=== PATIENT | female | born 1970 | race Caucasian/White ===

== ENCOUNTER 2017-03-08 21:39 | Inpatient (IN) | payer BC ==
[~2017-03-08] VITALS: Ht 170.2 cm; Wt 66.0 kg
[~2017-03-08 21:39] MED LIST: ZOLOFT100 MG PO
[2017-03-09 11:05] VITALS: BP 145/73
[2017-03-09 11:28] VITALS: BP 145/73
[2017-03-09 15:50] VITALS: BP 130/67
[2017-03-09 17:39] LABS: HEMATOCRIT 38.7 % (36.0-46.0); MCH 28.7 PG (29.0-34.0); MCHC 33.9 G/DL (30.0-36.0); MCV 84.7 FL (83-99); MEAN PLAT.VOLUME 9.6 uM^3 (9.5-12.4); PLATELET COUNT 224 K/uL (156-360); RBC DIS.WIDTH-CV 12.7 % (11.8-14.6); RBC DIS.WIDTH-SD 38.8 % (39-53); RED BLOOD COUNT 4.57 M/uL (3.80-5.20); WHITE BLOOD COUNT 11.7 K/uL (4.1-10.2)
[2017-03-09 18:02] LABS: ANION GAP 10 MEQ/L (2-14); CHLORIDE 104 MEQ/L (99-109); GFR ESTIMATE (CALCULATED) > 59 mL/min/; GLUCOSE 147 mg/dL (70-99); POTASSIUM 3.9 MEQ/L (3.7-5.4); SAMPLE HEMOLYSIS CHECK 0; SAMPLE ICTERIC CHECK 0; SAMPLE LIPEMIA CHECK 0; SODIUM 137 MEQ/L (136-147); UREA NITROGEN (BUN) 8 mg/dL (9-23)
[2017-03-09 19:50] VITALS: BP 124/60
[2017-03-09 23:10] VITALS: BP 118/69
[2017-03-10 04:00] VITALS: BP 104/53
[2017-03-10 06:18] LABS: HEMATOCRIT 34.6 % (36.0-46.0); MCH 29.8 PG (29.0-34.0); MCHC 34.7 G/DL (30.0-36.0); MCV 85.9 FL (83-99); MEAN PLAT.VOLUME 10.1 uM^3 (9.5-12.4); PLATELET COUNT 204 K/uL (156-360); RBC DIS.WIDTH-CV 12.6 % (11.8-14.6); RBC DIS.WIDTH-SD 39.4 % (39-53); RED BLOOD COUNT 4.03 M/uL (3.80-5.20); WHITE BLOOD COUNT 11.6 K/uL (4.1-10.2)
[2017-03-10 07:00] LABS: ANION GAP 7 MEQ/L (2-14); CHLORIDE 101 MEQ/L (99-109); GFR ESTIMATE (CALCULATED) > 59 mL/min/; GLUCOSE 126 mg/dL (70-99); POTASSIUM 3.7 MEQ/L (3.7-5.4); SAMPLE HEMOLYSIS CHECK 0; SAMPLE ICTERIC CHECK 0; SAMPLE LIPEMIA CHECK 0; SODIUM 134 MEQ/L (136-147); UREA NITROGEN (BUN) 5 mg/dL (9-23)
[2017-03-10 07:58] VITALS: BP 115/58
[2017-03-10 11:51] VITALS: BP 99/56
[2017-03-10 17:16] VITALS: BP 96/51
[2017-03-10 19:35] VITALS: BP 110/56
[2017-03-10 23:25] VITALS: BP 128/56
[2017-03-11 03:15] VITALS: BP 119/58
[2017-03-11 06:39] LABS: HEMATOCRIT 34.3 % (36.0-46.0); MCH 29.6 PG (29.0-34.0); MCHC 34.4 G/DL (30.0-36.0); PLATELET COUNT 208 K/uL (156-360); RBC DIS.WIDTH-CV 12.7 % (11.8-14.6); RBC DIS.WIDTH-SD 39.8 % (39-53); RED BLOOD COUNT 3.99 M/uL (3.80-5.20); WHITE BLOOD COUNT 10.1 K/uL (4.1-10.2)
[2017-03-11 07:09] LABS: ANION GAP 11 MEQ/L (2-14); CHLORIDE 105 MEQ/L (99-109); GFR ESTIMATE (CALCULATED) > 59 mL/min/; POTASSIUM 3.6 MEQ/L (3.7-5.4); SAMPLE HEMOLYSIS CHECK 0; SAMPLE ICTERIC CHECK 0; SAMPLE LIPEMIA CHECK 0; UREA NITROGEN (BUN) 6 mg/dL (9-23)
[2017-03-11 07:12] LABS: GLUCOSE 87 mg/dL (70-99); SODIUM 142 MEQ/L (136-147)
[2017-03-11 07:41] VITALS: BP 128/62
[2017-03-11] MEDS ORDERED: TRAMADOL HCL50 MG PO (09:14)
[2017-03-11] MEDS ORDERED: ESTRADIOL1 MG PO (09:14)
[2017-03-11] MEDS ORDERED: LEVAQUIN750 MG PO (09:14)
[2017-03-11 11:05] VITALS: BP 132/72
[2017-03-11 16:10] VITALS: BP 131/61
[2017-03-11 17:33] LABS: ADD MIUA? YES; BILIRUBIN NEGATIVE; BLOOD LARGE; COLOR STRAW ((YELLOW)); GLUCOSE (STRIP) NEGATIVE; KETONES 5; LEUKOCYTES NEGATIVE; NITRITE NEGATIVE; PROTEIN (STRIP) NEGATIVE; SPECIFIC GRAVITY 1.005 (1.000-1.030); UROBILINOGEN 0.2 MG/DL (0.2-1.0)
[2017-03-11 17:43] LABS: BACTERIA RARE /HPF; EPITHELIAL CELLS 1+ /HPF; MUCUS NONE SEEN /LPF; RED BLOOD CELLS 0-5 /HPF (0-5); WHITE BLOOD CELLS 0-5 /HPF (0-5)
[2017-03-11 19:25] VITALS: BP 128/73
[2017-03-11 23:58] VITALS: BP 124/60
[2017-03-12 03:40] VITALS: BP 121/63
[2017-03-12 06:25] LABS: HEMATOCRIT 34.3 % (36.0-46.0); MCHC 34.1 G/DL (30.0-36.0); MCV 85.1 FL (83-99); MEAN PLAT.VOLUME 9.9 uM^3 (9.5-12.4); PLATELET COUNT 207 K/uL (156-360); RBC DIS.WIDTH-CV 12.9 % (11.8-14.6); RBC DIS.WIDTH-SD 39.8 % (39-53); RED BLOOD COUNT 4.03 M/uL (3.80-5.20); WHITE BLOOD COUNT 8.8 K/uL (4.1-10.2)
[2017-03-12 07:03] LABS: ANION GAP 9 MEQ/L (2-14); CHLORIDE 105 MEQ/L (99-109); SAMPLE HEMOLYSIS CHECK 0; SAMPLE ICTERIC CHECK 0; SAMPLE LIPEMIA CHECK 0; SODIUM 141 MEQ/L (136-147)
[2017-03-12 07:08] LABS: GFR ESTIMATE (CALCULATED) > 59 mL/min/; GLUCOSE 103 mg/dL (70-99); UREA NITROGEN (BUN) 6 mg/dL (9-23)
[2017-03-12 08:10] VITALS: BP 127/71
== END 2017-03-12 10:15 | disposition home or self-care (01) | DRG 743 ==
LOC: ENRESERV 21:39 → 2SOUTH 03-09 08:43 → 2EAST 03-09 10:40 → 2SOUTH 03-09 10:40 → ENRESERV 03-09 14:47 → 2EAST 03-09 15:52
PROVIDERS: Obstetrics & Gynecology Gynecologic Oncology
DX: D25.9 Leiomyoma of uterus, unspecified (principal); N80.0 Endometriosis of uterus; N93.8 Other specified abnormal uterine and vaginal bleeding; N83.201 Unspecified ovarian cyst, right side; F41.8 Other specified anxiety disorders
CPT/HCPCS: 36415; 80048; 81003; 85027; 86850; 86900; 86901; 86920; 87086; 88305; 88307; J0131; J0330; J0690; J1100; J1170; J1650; J1885; J1956; J2250; J2405; J2550; J2710; J2765; J3010